=== PATIENT | female | born 1970 | race Caucasian/White ===

== ENCOUNTER 2022-12-04 14:23 | Emergency (ER) | payer BC, SELFPAY ==
[2022-12-04 14:29] VITALS: BP 139/103; PULSE 90; RESP 18; TEMP 36.4; O2SAT 98; BMI 29.5
--- NOTE | 2022-12-04 14:35 | ED.NURSE ---
Pt has a history of a right sided brain tumor, that pt states is non cancerous.
--- NOTE | 2022-12-04 14:54 | CRLHL7_ITS ---
For Patients: As a result of the Century Cures Act, medical imaging exams and procedure reports are released immediately into your electronic medical record. You may view this report before your referring provider. If you have questions, please contact your health care provider. INDICATION: Vertigo. TECHNIQUE: Noncontrast CT images acquired through the brain. COMPARISON: None. FINDINGS: The ventricles and sulci are within normal limits for patient age. No mass effect or midline shift. The king-white differentiation is maintained. No acute intracranial hemorrhage or pathologic extra-axial fluid collection. Mild atherosclerotic calcifications in the carotid siphons. The globes are symmetric. The calvarium is intact. The paranasal sinuses and mastoid air cells are clear. Right temporomandibular joint degenerative changes. IMPRESSION: No acute intracranial hemorrhage or mass effect. Please note that all CT scans at this facility use dose modulation, iterative reconstruction, and/or weight-based dosing when appropriate to reduce radiation dose to as low as reasonably achievable. Dictated by Eddy Da Silva MD @ 12/04/2022 3:46:19 PM (Electronically Signed)
--- NOTE | 2022-12-04 14:54 | CRLHL7_ITS ---
For Patients: As a result of the Century Cures Act, medical imaging exams and procedure reports are released immediately into your electronic medical record. You may view this report before your referring provider. If you have questions, please contact your health care provider. DATE: 12/04/2022. CLINICAL HISTORY: Vertigo. TECHNIQUE: Standard helical CT image acquisition through the head and neck following the administration of intravenous contrast was performed. Multiplanar reconstructed images performed on a separate workstation. COMPARISON: None available. FINDINGS: The great vessels are patent. The common carotid arteries are patent. The proximal ICAs are patent without signficant stenoses by NASCET criteria. The more distal cervical ICAs are patent. The origins of the vertebral arteries are patent. The cervical segments of the vertebral arteries are patent. The petrous, cavernous, and supraclinoid segments of the internal carotid arteries are patent. The anterior and middle cerebral arteries are patent. The anterior communicating artery is visualized and is within normal limits. The intracranial vertebral arteries, basilar trunk, and posterior cerebral arteries are patent. No intracranial proximal large vessel occlusion or flow-limiting luminal stenosis. No evidence of cerebral aneurysm. No findings to suggest an arterial-venous shunting lesion. IMPRESSION: 1. No intracranial proximal large vessel occlusion or flow-limiting luminal stenosis. 2. Patent cervical arterial vasculature without hemodynamically significant luminal stenosis. Please note that all CT scans at this facility use dose modulation, iterative reconstruction, and/or weight-based dosing when appropriate to reduce radiation dose to as low as reasonably achievable. Dictated by Naif Quevedo MD @ 12/05/2022 1:23:06 PM (Electronically Signed)
[2022-12-04 14:55] VITALS: O2SAT 98
[2022-12-04 15:00] LABS: Lactate* 1.8 mmol/L (0.5-1.9)
[2022-12-04] MEDS: 0.9 % SODIUM CHLORIDE 1000 ml 1,000 ML IV (15:00)
[2022-12-04] MEDS: ONDANSETRON 2 MG/ML inj 4 MG IVP (15:00)
[2022-12-04 15:03] LABS: Basophils Absolute Auto 0.03 K/uL (0.00-0.30); Basophils Percent Auto 0.4 % (0.0-3.0); Eosinophils Percent Auto 2.9 % (0.0-7.0); Hematocrit 41.6 % (33.0-51.0); Hemoglobin* 14.2 gm/dL (12.0-16.0); Immature Granulocytes Abs Auto 0.02 K/uL (0.00-0.30); Immature Granulocytes Pct Auto 0.3 %; Lymphocytes Absolute Auto 2.87 K/uL (0.90-2.90); Lymphocytes Percent Auto 41.4 % (20-44); Mean Corpuscular HGB Conc 34 gm/dL (32-36); Mean Corpuscular Hemoglobin 30 pg (26-34); Mean Corpuscular Volume 89 fL (80-100); Monocytes Percent Auto 7.5 % (0.0-11.0); Neutrophils Percent Auto 47.5 % (42.0-72.0); Platelet Count* 286 K/uL (140-440); RDW Coefficient of Variation % 11.9 % (11.5-15.5); Red Blood Count 4.68 m/uL (4.00-5.20); White Blood Count* 6.94 K/uL (4.50-11.00)
[2022-12-04 15:08] LABS: Slide Review Reflex No
[2022-12-04 15:20] LABS: Albumin* 4.4 g/dL (3.3-5.0); Chloride* 104 mmol/L (96-114); Potassium* 3.9 mmol/L (3.6-5.1); Sodium* 137 mmol/L (135-149)
[2022-12-04 15:22] LABS: Creatinine* 0.6 mg/dL (0.5-1.5); Est. Creatinine Clearance* 113.32; Estimated Glomerular Filt Rate 107 ml/min
[2022-12-04 15:23] LABS: Alanine Aminotransferase* 29 U/L (4-35); Alkaline Phosphatase* 78 U/L (40-150); Aspartate Amino Transferase* 38 U/L (12-35); Bilirubin Direct* 0.3 mg/dL (0.0-0.5); Bilirubin Total* 0.6 mg/dL (0.1-1.5); Blood Urea Nitrogen* 20 mg/dL (7-30); Carbon Dioxide* 25 mmol/L (20-32); Glucose* 99 mg/dL (60-115); Total Protein* 7.7 g/dL (6.0-8.3)
--- NOTE | 2022-12-04 15:23 | ED.GENADULT ---
HPI - General Adult General Chief complaint: Dizziness/Vertigo Stated complaint: Dizzy Time Seen by Provider: 12/04/22 14:49 Source: patient Mode of arrival: ambulatory Limitations: no limitations History of Present Illness HPI narrative: Patient is a 52-year-old female coming in today complaining of vertigo. She states that she finished having her lunch and just when she was about to leave all of a sudden the room started spinning uncontrollably around her. She became incredibly nauseous but has not yet vomited. The spinning comes and goes. It comes on just as fast as it goes away. She does appear to be more comfortable looking forward however even looking forward with her eyes close the sensation of spinning up comes several times while we are having a conversation. Patient tells me that she has brain tumor. She cannot tell me where it is or what kind of tumor it is. She states that has decreased in size but she cannot tell me how it has decreased in size. She tells me that when her tumor was 1st being treated that she had similar vertiginous sensations but nothing since then. She cannot tell me when that was. She denies any recent illness. No changes in her hearing, no ringing in her ears. No blurry vision. No recent fevers or chills. Patient takes amitriptyline, no other medications. Related Data Allergies Allergy/AdvReac Type Severity Reaction Status Date / Time No Known Drug Allergies Allergy Verified 12/04/22 14:33 Review of Systems Status of ROS: Reports: 10 or more systems reviewed and unremarkable except as noted in History and below [facility] Social History service: No Exam Narrative: Exam Narrative: Well-nourished well-developed patient who is clearly uncomfortable. Alert and oriented x3. Answers questions appropriately. Mood and affect are appropriate. Thoughts are goal oriented and rational. No tangential or magical thinking noted. Patient speaks in full sentences without needing to catch her breath. She has to take several breaks during our conversation and she grabs the emesis bag multiple times. HEENT: Normocephalic atraumatic. Pupils are equally round reactive to light. Extraocular muscles are intact. Conjunctivae are moist without any icterus noted. Moist mucous membranes. Cardiovascular: Heart is regular rate and rhythm S1 and S2 are present without any murmurs. Lungs: Clear to auscultation bilaterally no wheezes rhonchi or rales are appreciated. Patient takes deep breaths without any discomfort. Abdomen: Soft and nontender nondistended with normal bowel sounds. No guarding or rebound. No masses or organomegaly appreciated. Extremities: Bilateral lower extremities are without edema. Normal DP and PT pulses. Skin: Well perfused without any obvious rashes. Strength is 5/5 of the upper and lower extremities. Cranial nerves 3-12 are normal. I cannot assess for nystagmus because this exacerbates her symptoms. Const: Vital Signs, click to edit/add: Vital Signs - 24 hr 12/04/22 14:29 12/04/22 14:55 Temperature 97.5 F L Pulse Rate [Right Pulse Oximeter] 90 Respiratory Rate 18 Blood Pressure [Ri ght Upper Arm] 139/103 H Pulse Oximetry 98 98 Oxygen Delivery Me thod Room Air Course Course Hospital Course: CT stroke protocol was ordered right away. IV was established and labs were drawn. EKG, read by me, shows normal sinus rhythm with an incomplete right bundle-branch block and a prolonged QT. I do not have a previous 1 to compare this to. IV fluids, Zofran were started. Labs and imaging were all unremarkable. CTA head and neck did not show any evidence of occlusion, dissection or stenosis. Patient felt significantly better after fluids and Zofran were given, the vertigo resolved. I was able to re-examine her at that time she did not have any nystagmus and her symptoms are not reproducible. Vital Signs Vital signs: Initial Vital Signs Temperature 97.5 F L 12/04/22 14:29 Temperature Source Temporal Artery Scan 12/04/22 14:29 Pulse Rate 90 12/04/22 14:29 Pulse Rhythm Regular 12/04/22 14:29 Pulse Strength 3+ Normal 12/04/22 14:29 Respiratory Rate 18 12/04/22 14:29 Blood Pressure 139/103 H 12/04/22 14:29 Blood Pressure Mean 115 12/04/22 14:29 Blood Pressure Position Supine 12/04/22 14:29 Pulse Oximetry 98 12/04/22 14:29 Oxygen Delivery Method Room Air 12/04/22 14:29 Vital Signs Temperature 97.5 F L 12/04/22 14:29 Pulse Rate 90 12/04/22 14:29 Respiratory Rate 18 12/04/22 14:29 Blood Pressure 139/103 H 12/04/22 14:29 Pulse Oximetry 98 12/04/22 14:29 Oxygen Delivery Method Room Air 12/04/22 14:29 Temperature 97.5 F L 12/04/22 14:29 Pulse Rate 90 12/04/22 14:29 Respiratory Rate 18 12/04/22 14:29 Blood Pressure 139/103 H 12/04/22 14:29 Pulse Oximetry 98 12/04/22 14:55 Oxygen Delivery Method Room Air 12/04/22 14:29 Medical Decision Making MDM Narrative Medical decision making narrative: 52-year-old female with an acute episode of vertigo. Now resolved. We discussed hydration we discussed trying Laya maneuver if this occurs again. We discussed reasons for follow-up. Patient also has a prolonged QT on EKG, have asked her to discuss this with her primary care provider. Patient was agreeable and had no other questions. Lab Data Lab results reviewed: Yes I reviewed the patient's lab results Labs: Lab Results 12/04/22 12/04/22 Range/Units 14:54 14:55 WBC 6.94 (4.50-11.00) K/uL RBC 4.68 (4.00-5.20) m/uL Hgb 14.2 (12.0-16.0) gm/dL Hct 41.6 (33.0-51.0) % MCV 89 (80-100) fL MCH 30 (26-34) pg MCHC 34 (32-36) gm/dL RDW Coeff of Derrick 11.9 (11.5-15.5) % Plt Count 286 (140-440) K/uL Neut % (Auto) 47.5 (42.0-72.0) % Lymph % (Auto) 41.4 (20-44) % Dauphin % (Auto) 7.5 (0.0-11.0) % Eos % (Auto) 2.9 (0.0-7.0) % Baso % (Auto) 0.4 (0.0-3.0) % Neut # (Auto) 3.30 (1.7-7.0) K/uL Lymph # (Auto) 2.87 (0.90-2.90) K/uL Da[place]hin # (Auto) 0.50 (0.00-0.90) K/UL Eos # (Auto) 0.20 (0.00-0.50) K/uL Baso # (Auto) 0.03 (0.00-0.30) K/uL ESR 12 (2-20) mm/hr Sodium 137 (135-149) mmol/L Potassium 3.9 (3.6-5.1) mmol/L Chloride 104 (96-114) mmol/L Carbon Dioxide 25 (20-32) mmol/L BUN 20 (7-30) mg/dL Creatinine 0.6 (0.5-1.5) mg/dL Estimated Creat Clear 113.32 Estimated GFR 107 ml/min Glucose 99 (60-115) mg/dL Lactate 1.8 (0.5-1.9) mmol/L Calcium 9.4 (8.4-10.6) mg/dL Total Bilirubin 0.6 (0.1-1.5) mg/dL Direct Bilirubin 0.3 (0.0-0.5) mg/dL AST 38 H (12-35) U/L ALT 29 (4-35) U/L Alkaline Phosphatase 78 (40-150) U/L Troponin I < 0.01 L (0.01-0.04) ng/mL Total Protein 7.7 (6.0-8.3) g/dL Albumin 4.4 (3.3-5.0) g/dL Imaging Data CT scan - head: Attestation: I have reviewed the pertinent imaging results. Radiologist's impression: Noncontrast CT images acquired through the brain. COMPARISON: None. FINDINGS: The ventricles and sulci are within normal limits for patient age. No mass effect or midline shift. The king-white differentiation is maintained. No acute intracranial hemorrhage or pathologic extra-axial fluid collection. Mild atherosclerotic calcifications in the carotid siphons. The globes are symmetric. The calvarium is intact. The paranasal sinuses and mastoid air cells are clear. Right temporomandibular joint degenerative changes. IMPRESSION: No acute intracranial hemorrhage or mass effect. ECG Data Attestation: I personally reviewed and interpreted this ECG as follows: Discharge Plan Discharge Clinical Impression: Prolonged Q-T interval on ECG, Vertigo Patient Disposition: Home, Self-Care Condition: Improved Additional Instructions: Stay well hydrated. You can try doing the Laya maneuver if this occurs again, you can Google how to do this. As far as the prolonged QT on your EKG- this is nothing any to be concerned about just something to bring up to your primary care provider at your next visit. Follow Up/Referrals: Provider,Not a Local [Primary Care Provider] - Stand Alone Forms: Draft Info Instructions
[2022-12-04 15:24] LABS: Calcium* 9.4 mg/dL (8.4-10.6)
[2022-12-04 15:42] LABS: Troponin I* < 0.01 ng/mL (0.01-0.04)
[2022-12-04 15:43] LABS: Erythrocyte SedimentationRate* 12 mm/hr (2-20)
== END 2022-12-04 16:51 | disposition home or self-care (01) ==
PROVIDERS: Emergency Provider Family Medicine
DX: R42 Dizziness and giddiness (principal); I45.81 Long QT syndrome
CPT/HCPCS: 36415; 70450; 70496; 70498; 80048; 80076; 83605; 84484; 85025; 85651; 93005; 94761; 96374; 99284; 99285; J2405; J7030; Q9967